=== PATIENT | male | born 1975 | race Caucasian/White ===

== ENCOUNTER 2021-04-21 10:32 | Emergency (ER) | payer BC, OTHER ==
[2021-04-21 10:38] VITALS: BP 121/82; PULSE 82; TEMP 98.4; BMI 26.4
[2021-04-21] MEDS ORDERED: IBUPROFEN 600 MG TABLET (FP) PO ONE ×2 (10:40→11:11)
== END 2021-04-21 11:40 | disposition home or self-care (01) ==
LOC: FER 10:32
DX: S93.492A Sprain of other ligament of left ankle, initial encounter (principal); S93.602A Unspecified sprain of left foot, initial encounter
CPT/HCPCS: 73610-TC-LT-FY; 73630-TC-LT; 99283-25